=== PATIENT | male | born 1955 | race Caucasian/White ===

== ENCOUNTER → 2018-02-17 | Outpatient (CLI) | payer OTHER ==
[~2018-02-17] MED LIST: AMITRIPTYLINE H10 MG PO; ASPIR 8181 M1 PO; CITRATE OF MAG296 ML PO; COLACE100 MG PO; Ecotrin PO; GOLYTELY SOLU4000 ML PO; LAMICTAL200 MG PO; LEVOFLOXACIN500 MG PO; LEVOFLOXACIN750 MG PO; MIRALAX255 GM PO; MOBIC7.5 MG PO; PANTOPRAZOLE SO40 MG PO; PEPCID20 MG PO; PERCOCET 5/31 TABLET PO; PRILOSEC20 MG PO; ZOFRAN4 MG PO; Zocor PO
== END | disposition home or self-care (01) ==
LOC: CDC 08:20
DX: Z01.810 Encounter for preprocedural cardiovascular examination (principal); R10.31 Right lower quadrant pain
CPT/HCPCS: 93000

== ENCOUNTER → 2018-02-17 | Outpatient (CLI) | payer OTHER ==
[~2018-02-17] MED LIST changes: +ADULT ASPIRIN81 MG PO; +COZAAR50 MG PO; +FIORICET 50-301 EAC1 PO; +NEURONTIN300 MG PO; +NORTRIPTYLINE H25 MG PO; +OXAYDO5 MG PO; +ZOCOR20 MG PO
== END | disposition home or self-care (01) ==
LOC: NUC 02-12 12:00
DX: R10.31 Right lower quadrant pain (principal); R10.9 Unspecified abdominal pain; M62.838 Other muscle spasm
CPT/HCPCS: 78227; A9537; J2805

== ENCOUNTER 2018-02-26 07:54 | Day surgery (SDC) | payer OTHER ==
[~2018-02-26] VITALS: Ht 180.3 cm; Wt 72.1 kg
[2018-02-26 08:33] VITALS: BP 117/78
[2018-02-26] MEDS ORDERED: COLACE100 MG PO (11:37)
[2018-02-26] MEDS ORDERED: PERCOCET 5/31 TABLET PO (11:37)
[2018-02-26 13:50] VITALS: BP 110/67
[2018-02-26 14:28] VITALS: BP 128/78
== END 2018-02-26 14:25 | disposition home or self-care (01) ==
LOC: SDC 07:54
DX: K80.10 Calculus of gallbladder with chronic cholecystitis without obstruction (principal); K66.0 Peritoneal adhesions (postprocedural) (postinfection); K38.8 Other specified diseases of appendix; K59.00 Constipation, unspecified; N40.0 Benign prostatic hyperplasia without lower urinary tract symptoms; K21.9 Gastro-esophageal reflux disease without esophagitis; Z79.82 Long term (current) use of aspirin; Z87.891 Personal history of nicotine dependence; Z82.49 Family history of ischemic heart disease and other diseases of the circulatory system
CPT/HCPCS: 88302; 88304; J1100; J1170; J2250; J2405; J2710; J3010; J7643; Q0175; S0074